=== PATIENT | female | born 1955 | race Hispanic/Latino ===

== ENCOUNTER 2017-05-21 09:50 | Day surgery (SDC) | payer BC ==
[~2017-05-21] VITALS: Ht 152.4 cm; Wt 79.9 kg
[~2017-05-21 09:50] MED LIST: SODIUM CHLORIDE 0.9% 1000ML 1,000 ML IV ONE
[2017-05-21 11:04] VITALS: BP 149/71
[2017-05-21] MEDS ORDERED: MIDAZOLAM HCL 1 MG/ML 2ML VIAL ONE (11:16)
[2017-05-21] MEDS ORDERED: MEPERIDINE-PF 50 MG/ML SYG ONE (11:16)
[2017-05-21] MEDS ORDERED: ASPI-555 PO (11:36)
[2017-05-21] MEDS ORDERED: XALA2.5OS OU (11:36)
[2017-05-21] MEDS ORDERED: HYDR25TA PO (11:36)
[2017-05-21] MEDS ORDERED: ATOR40TA71 PO (11:36)
[2017-05-21] MEDS ORDERED: LISI40TA4 PO (11:36)
[2017-05-21 11:41] VITALS: BP 103/50
== END 2017-05-21 12:58 ==
LOC: DAH 09:50
PROVIDERS: ATTEND Internal Medicine Gastroenterology
DX: Z12.11 Encounter for screening for malignant neoplasm of colon (principal); K57.30 Diverticulosis of large intestine without perforation or abscess without bleeding; I10 Essential (primary) hypertension; E78.5 Hyperlipidemia, unspecified; E11.39 Type 2 diabetes mellitus with other diabetic ophthalmic complication; H40.9 Unspecified glaucoma; Z90.710 Acquired absence of both cervix and uterus
CPT/HCPCS: 45378; 82948 ×2; A4606; J2175; J2250; J7030; 99156